=== PATIENT | female | born 1985 ===

== ENCOUNTER 2017-10-05 18:53 | Emergency (ER) | payer SELFPAY ==
[2017-10-05 19:04] VITALS: BMI 28.2
[2017-10-05 19:07] VITALS: BP 126/84; PULSE 84; TEMP 98.2; O2SAT 98
[2017-10-05] MEDS ORDERED: Hydrocortisone 2.5% Rectal Cream(30 gm) PR STA (19:24)
--- NOTE | 2017-10-05 19:31 | C.PDOC ---
History Of Present Illness 32 year old female presents to the ED for evaluation of rectal pain which began 2 days ago. Patient notes she has history of hemorrhoids and notes current symptoms feel similar to prior exacerbations. Patient has been taking Colace and doing sitz baths without significant relief. Patient states she saw some blood when she used the bathroom, but notes that she started her menses yesterday. She denies fever, chills, abdominal pain, diarrhea. Time Seen by Provider: 10/05/17 19:13 Chief Complaint (Nursing): Female Genitourinary History Per: Patient History/Exam Limitations: no limitations Onset/Duration Of Symptoms: Days (2) Current Symptoms Are (Timing): Still Present Associated Symptoms: denies: Fever Additional History Per: Patient PMH Reviewed: Historical Data, Nursing Documentation, Vital Signs - Medical History PMH: No Chronic Diseases - Surgical History Surgical History: No Surg Hx - Family History Family History: States: Unknown Family Hx - Immunization History Hx Tetanus Toxoid Vaccination: No Hx Influenza Vaccination: No Hx Pneumococcal Vaccination: No Review Of Systems Constitutional: Negative for: Fever, Chills Gastrointestinal: Positive for: Rectal Pain. Negative for: Abdominal Pain, Diarrhea ED Course And Treatment O2 Sat by Pulse Oximetry: 98 (on RA) Pulse Ox Interpretation: Normal Disposition Counseled Patient/Family Regarding: Diagnosis, Need For Followup, Rx Given - Disposition Referrals: [facility] [Outside] [facility] [Outside] Disposition: HOME/ ROUTINE Disposition Time: 19:28 Condition: GOOD Additional Instructions: Vaya a gonsalez mdico o la clnica en 2-5 ricardo sin falta, para mas evaluacin. [place] [facility] los medicamentos shelley indicado. Volver a la jami de emergencia en cualquier momento si los sntomas persisten o empeoran. 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 - Scribe Statement The provider has reviewed the documentation as recorded by the Scribe (Gretchen Norwood) All medical record entries made by the Scribe were at my direction and personally dictated by me. I have reviewed the chart and agree that the record accurately reflects my personal performance of the history, physical exam, medical decision making, and the department course for this patient. I have also personally directed, reviewed, and agree with the discharge instructions and disposition.
[2017-10-05 19:44] VITALS: RESP 20
--- NOTE | 2017-10-05 20:22 | C.PDOC ---
History Of Present Illness 32 year old female presents to the ED for evaluation of rectal pain which began 2 days ago. Patient has a history of hemorrhoids and notes her current symptoms feel similar to prior exacerbations. Patient has been taking Colace and doing sitz baths without significant relief. Patient states she saw some blood when she used the bathroom, but notes that she started her menses yesterday. She denies fever, chills, abdominal pain, diarrhea. Time Seen by Provider: 10/05/17 19:13 Chief Complaint (Nursing): Female Genitourinary History Per: Patient History/Exam Limitations: no limitations Onset/Duration Of Symptoms: Days (2) Current Symptoms Are (Timing): Still Present Additional History Per: Patient Past Medical History Reviewed: Historical Data, Nursing Documentation, Vital Signs Vital Signs: Last Vital Signs Temp 98.2 F 10/05/17 19:04 Pulse 84 10/05/17 19:04 Resp 20 10/05/17 19:44 BP 126/84 10/05/17 19:04 Pulse Ox 98 10/05/17 20:24 - Medical History PMH: No Chronic Diseases Surgical History: Family History: States: Unknown Family Hx - Social History Hx Alcohol Use: No Hx Substance Use: No - Immunization History Hx Tetanus Toxoid Vaccination: No Hx Influenza Vaccination: No Hx Pneumococcal Vaccination: No Review Of Systems Constitutional: Negative for: Fever, Chills Gastrointestinal: Positive for: Rectal Pain. Negative for: Abdominal Pain, Diarrhea Physical Exam - Physical Exam Appears: Non-toxic, No Acute Distress Skin: Normal Color, Warm, Dry Head: Atraumatic, Normacephalic Eye(s): bilateral: Normal Inspection Oral Mucosa: Moist Chest: Symmetrical, No Deformity, No Tenderness Gastrointestinal/Abdominal: Soft, No Tenderness, No Guarding, No Rebound Rectal: Hemorrhoids (single, external, non-thrombosed ) Pelvic: Vaginal Bleeding Neurological/Psych: Oriented x3, Normal Speech, Normal Cognition ED Course And Treatment O2 Sat by Pulse Oximetry: 98 (on RA) Medical Decision Making Medical Decision Making: Impression: 32 year old female with rectal pain Plan: * Hydrocortisone 2.5% MD * reassess and disposition Progress: Hydrocortisone 2.5% MD administered. On reassessment, patient is resting comfortably, showing no signs of distress and reports an improvement in her symptoms. Patient is stable for discharge and is advised to follow up with her PMD within 1-2 days for further evaluation and/ or return to the ED if symptoms persist or worsen. Disposition - Disposition Referrals: [facility] [Outside] [facility] [Outside] Disposition: HOME/ ROUTINE Disposition Time: 19:28 Condition: GOOD Additional Instructions: Vaya a gonsalez mdico o la clnica en 2-5 ricardo sin falta, para mas evaluacin. [facility] los medicamentos shelley indicado. Volver a la jami de emergencia en cualquier momento si los sntomas persisten o empeoran. 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 - Scribe Statement The provider has reviewed the documentation as recorded by the Scribe (Gretchen Norwood) All medical record entries made by the Scribe were at my direction and personally dictated by me. I have reviewed the chart and agree that the record accurately reflects my personal performance of the history, physical exam, medical decision making, and the department course for this patient. I have also personally directed, reviewed, and agree with the discharge instructions and disposition.
== END 2017-10-05 19:43 | disposition home or self-care (01) ==
LOC: C.ER 18:53
DX: K64.4 Residual hemorrhoidal skin tags (principal)